=== PATIENT | male | born 1935 | race Caucasian/White ===

== ENCOUNTER 2016-09-14 11:14 | Emergency (ER) | payer MEDICARE ==
[~2016-09-14] VITALS: Ht 182.9 cm; Wt 82.6 kg
[~2016-09-14 11:14] MED LIST: ASPI-482 PO; ASPI325T8 PO; ATOR10TA60 PO; CLOP75TA PO; EZET10TA18 PO; GLIP5POW MC; GLIP5TAB10 PO; ISOS30TA PO; LOVA40TA2 PO; METF-620 PO; MULT-246 PO; OMEP40CA2 PO; TERA1CAP3 PO; TERA5CAP3 PO; one a day vitamin PO
[2016-09-14 12:03] LABS: BILIRUBIN,URINE NEGATIVE (NEG); GLUCOSE,URINE 250 mg/dL (NEG); NITRITE,URINE NEGATIVE (NEG); PROTEIN,URINE NEGATIVE (NEG-TRACE); UROBILINOGEN,URINE 0.2 mg/dL (0.2 mg/dL)
[2016-09-14 12:13] LABS: BACTERIA,URINE 0 /HPF (0-FEW); RBC,URINE 0 /HPF (0-2); SQUAMOUS EPITHELIAL CELL,UR FEW /LPF; WBC,URINE 0 /HPF (0-4)
[2016-09-14 12:52] LABS: BASO % 1 % (0-3); EOS % 2 % (0-3); HEMATOCRIT 41.6 % (39.0-53.0); HEMOGLOBIN 13.9 g/dL (13.0-17.5); LYMPH # 1.2 x10^3/uL (1.0-4.8); LYMPH % 17 % (24-48); MEAN CORPUSCULAR HEMOGLOBIN 32 pg (25-35); MEAN CORPUSCULAR HGB CONC 34 g/dL (31-37); MEAN CORPUSCULAR VOLUME 95 fL (79-100); MONO % 8 % (0-9); NEUT % 71 % (31-73); PLATELET COUNT 182 x10^3/uL (140-400); RED CELL DISTRIBUTION WIDTH 13.4 % (11.5-14.5)
[2016-09-14 13:00] LABS: CALCIUM 9.3 mg/dL (8.5-10.1); CREATININE 1.3 mg/dL (0.7-1.3); GFR 53.1; POTASSIUM 4.6 mmol/L (3.5-5.1)
[2016-09-14 16:01] VITALS: BP 136/67
--- NOTE | 2016-09-14 16:42 | ED.ADGEN ---
Past Medical History Past Medical History: Diabetes-Type II, High Cholesterol, Heart Disease Past Surgical History: Angioplasty, Other Additional Past Surgical Histo: cadiac stents, ulcers Alcohol Use: None Drug Use: None Adult General Chief Complaint Chief Complaint: PAIN ON URINATION HPI HPI Patient is a 81 year old man, history of type 2 diabetes mellitus, hypertension , hyperlipidemia, overactive bladder, who presents emergency department with a complaint of weak stream, and burning with urination over the past week and a half. Patient states that he was started on mirabegron by his urologist, Dr. Pandey, approximately 12 or so days ago, for overactive bladder. He states that 2 days after being in medication begin to experience some burning with urination. He states he spoke to the urologist office and he was informed to continue the medication. Patient states that the burning has gotten worse, he is now having burning with every episode of urination, states that he has a "weak stream", states he is urinating more frequently, and is also experiencing cramping pain in his lower abdomen and back. He denies any fevers or chills, any nausea or vomiting, any diarrhea, any focal weakness, numbness or tingling. No hematuria, no injuries, no constipation. Patient states he tried to speak to the urologist office, and was informed that his physician was awake, and there was no covering physician at this time. Review of Systems Review of Systems Constitutional: Denies fever or chills. [] Eyes: Denies change in visual acuity. [] HENT: Denies nasal congestion or sore throat. [] Respiratory: Denies cough or shortness of breath. [] Cardiovascular: Denies chest pain or edema. [] GI: Denies abdominal pain, nausea, vomiting, bloody stools or diarrhea. [] : Dysuria, associated with abdominal cramping, and back pain. Musculoskeletal: Denies back pain or joint pain. [] Integument: Denies rash. [] Neurologic: Denies headache, focal weakness or sensory changes. [] Endocrine: Denies polyuria or polydipsia. [] Lymphatic: Denies swollen glands. [] Psychiatric: Denies depression or anxiety. [] Allergies Allergies Allergies Coded Allergies Type Severity Reaction Last Updated Verified Sulfa (Sulfonamide Antibiotics) Allergy Intermediate Rash 03/26/14 Yes Physical Exam Physical Exam Constitutional: Well developed, well nourished, no acute distress, non-toxic appearance. [] HENT: Normocephalic, atraumatic, bilateral external ears normal, oropharynx moist, no oral exudates, nose normal. [] Eyes: PERRLA, EOMI, conjunctiva normal, no discharge. [] Neck: Normal range of motion, no tenderness, supple, no stridor. [] Cardiovascular:Heart rate regular rhythm, no murmur, S1, S2, rubs or gallops. [] Lungs & Thorax: Bilateral breath sounds clear to auscultation, no wheezing, rhonchi, rales. No chest wall crepitus or tenderness. [] Abdomen: Bowel sounds normal, soft, no tenderness, no rebound, rigidity, no guarding, no masses, no pulsatile masses. [] Skin: Warm, dry, no erythema, no rash. [] Back: No midline or paraspinal tenderness, no CVA tenderness. [] Extremities: No tenderness, no cyanosis, no clubbing, ROM intact, no edema. [] Neurologic: Alert and oriented X 3, normal motor function, normal sensory function, no focal deficits noted. [] Psychologic: Affect normal, judgement normal, mood normal. [] examination: Patient is uncircumcised, foreskin easily retracted, normal- appearing glands penis, with no lymphadenopathy, masses, normal-appearing scrotum, no discharge drainage or lesions identified. Current Patient Data Vital Signs Vital Signs Date Time Temp Pulse Resp B/P (MAP) Pulse Ox O2 Delivery O2 Flow Rate FiO2 09/14/16 16:01 66 22 136/67 (90) 98 Room Air 09/14/16 11:25 97.5 97.5 Lab Values Laboratory Tests Test 09/14/16 11:22 09/14/16 12:39 Urine Collection Type Unknown Urine Color Yellow Urine Clarity Clear Urine pH 6.0 Urine Specific [place] 1.015 Urine Protein Negative mg/dL (NEG-TRACE) Urine Glucose (UA) 250 mg/dL (NEG) Urine Ketones (Stick) Negative mg/dL (NEG) Urine Blood Negative (NEG) Urine Nitrite Negative (NEG) Urine Bilirubin Negative (NEG) Urine Urobilinogen Dipstick 0.2 mg/dL (0.2 mg/dL) Urine Leukocyte Esterase Negative (NEG) Urine RBC 0 /HPF (0-2) Urine WBC 0 /HPF (0-4) Urine Squamous Epithelial Cells Few /LPF Urine Bacteria 0 /HPF (0-FEW) Urine Hyaline Casts Few /HPF White Blood Count 7.0 x10^3/uL (4.0-11.0) Red Blood Count 4.40 x10^6/uL (4.30-5.70) Hemoglobin 13.9 g/dL (13.0-17.5) Hematocrit 41.6 % (39.0-53.0) Mean Corpuscular Volume 95 fL (79-100) Mean Corpuscular Hemoglobin 32 pg (25-35) Mean Corpuscular Hemoglobin Concent 34 g/dL (31-37) Red Cell Distribution Width 13.4 % (11.5-14.5) Platelet Count 182 x10^3/uL (140-400) Neutrophils (%) (Auto) 71 % (31-73) Lymphocytes (%) (Auto) 17 % (24-48) L Monocytes (%) (Auto) 8 % (0-9) Eosinophils (%) (Auto) 2 % (0-3) Basophils (%) (Auto) 1 % (0-3) Neutrophils # (Auto) 5.0 x10^3uL (1.8-7.7) Lymphocytes # (Auto) 1.2 x10^3/uL (1.0-4.8) Monocytes # (Auto) 0.6 x10^3/uL (0.0-1.1) Eosinophils # (Auto) 0.2 x10^3/uL (0.0-0.7) Basophils # (Auto) 0.0 x10^3/uL (0.0-0.2) Sodium Level 140 mmol/L (136-145) Potassium Level 4.6 mmol/L (3.5-5.1) Chloride Level 103 mmol/L (98-107) Carbon Dioxide Level 29 mmol/L (21-32) Anion Gap 8 (6-14) Blood Urea Nitrogen 23 mg/dL (8-26) Creatinine 1.3 mg/dL (0.7-1.3) Estimated GFR (Cockcroft-Gault) 53.1 Glucose Level 179 mg/dL (70-99) H Calcium Level 9.3 mg/dL (8.5-10.1) Laboratory Tests 6/23/17 12:39 Laboratory Tests 09/14/16 12:39 EKG EKG Not indicated. [] Radiology/Procedures Radiology/Procedures Not indicated. [] Course & Med Decision Making Course & Med Decision Making Pertinent Labs and Imaging studies reviewed. (See chart for details) Patient well-appearing, denies any complaints this time, states he only has the cramping pain in his abdomen and back when he is urinating. Patient with a post void residual in the emergency department of 0 MLS on bladder scanner. Urinalysis does not reveal any evidence of bacteria, nitrates, or white blood cells. Laboratory studies obtained reveal electrolytes within normal limits, glucose of 179, consistent with patient's history of type 2 diabetes mellitus, and non-concerning CBC. I did attempt to speak with the physician on-call for the patient's urology group, multiple pages were sent out, at [phone], [phone] to the urology service, at [phone]. We're informed that the covering physician was in a procedure, however we never received a call back after waiting for more than hour. At that point, the patient was resting comfortably in the ED, without any concerning symptoms, I did speak with Dr. Sweeney of urology at [facility], who stated that he would recommend discontinuing the miragegron, and having the patient reinstitute his Flomax. I did discuss with patient, as he has no evidence of infection or other concerning findings, he is agreeable to plan to stop the new her medication and reinstitute his Flomax until he is able to follow-up with his urologist. We also discussed in detail concerning symptoms that prompt return to the ED for additional evaluation. Patient and at bedside voiced understanding and agreement. Patient does have Flomax at home and does not require additional prescription. Patient discharged home in stable condition with his with plan as above. Dragon Disclaimer Dragon Disclaimer This electronic medical record was generated, in whole or in part, using a voice recognition dictation system. Departure Impression: Primary Impression: Dysuria Disposition: HOME, SELF-CARE Condition: IMPROVED DAWIT LAWSON DO Sep 14, 2016 16:42
== END 2016-09-14 16:18 | disposition home or self-care (01) ==
LOC: ER 11:14
DX: R30.0 Dysuria (principal); R10.30 Lower abdominal pain, unspecified; M54.9 Dorsalgia, unspecified; E78.5 Hyperlipidemia, unspecified; E11.9 Type 2 diabetes mellitus without complications; E78.00 Pure hypercholesterolemia, unspecified; I11.9 Hypertensive heart disease without heart failure; N32.81 Overactive bladder; Z95.1 Presence of aortocoronary bypass graft; Z95.5 Presence of coronary angioplasty implant and graft; Z88.2 Allergy status to sulfonamides
CPT/HCPCS: 36415; 80048; 81001; 85027; 99284

== ENCOUNTER 2016-10-18 00:57 | Observation (INO) | payer MEDICARE ==
[~2016-10-18] VITALS: Ht 182.9 cm; Wt 80.0 kg
[2016-10-18 01:29] LABS: BASO % 1 % (0-3); EOS % 3 % (0-3); HEMOGLOBIN 13.4 g/dL (13.0-17.5); LYMPH # 2.4 x10^3/uL (1.0-4.8); LYMPH % 36 % (24-48); MEAN CORPUSCULAR HEMOGLOBIN 32 pg (25-35); MEAN CORPUSCULAR HGB CONC 34 g/dL (31-37); MEAN CORPUSCULAR VOLUME 94 fL (79-100); MONO % 10 % (0-9); NEUT % 51 % (31-73); PLATELET COUNT 193 x10^3/uL (140-400); RED BLOOD COUNT 4.26 x10^6/uL (4.30-5.70); RED CELL DISTRIBUTION WIDTH 13.2 % (11.5-14.5); WHITE BLOOD COUNT 6.5 x10^3/uL (4.0-11.0)
[2016-10-18] MEDS ORDERED: ASPIRIN CHEWABLE 81 MG TABLET. PO ONE (01:30)
[2016-10-18 01:40] LABS: CREATININE 1.3 mg/dL (0.7-1.3); GFR 53.1; POTASSIUM 4.2 mmol/L (3.5-5.1)
[2016-10-18 01:43] LABS: ALBUMIN 3.6 g/dL (3.4-5.0); TOTAL BILIRUBIN 0.4 mg/dL (0.2-1.0); TOTAL PROTEIN 7.3 g/dL (6.4-8.2)
--- NOTE | 2016-10-18 01:45 | PHYS DOC ---
Past Medical History Past Medical History: Diabetes-Type II, High Cholesterol, Heart Disease Past Surgical History: Angioplasty, Other Additional Past Surgical Histo: cadiac stents, ulcers Alcohol Use: None Drug Use: None Adult General Chief Complaint Chief Complaint: RIB PAIN HPI HPI Patient is a 81 year old male who presents with right-sided chest pain that started when he laid down to go to bed tonight. Patient has a cardiac history of 2 stents placed. Patient states the right chest pain radiates to his back. Patient denies any shortness of breath or any other symptoms. Patient denies any fevers or chills. Patient denies any nausea/vomiting/diarrhea. Review of Systems Review of Systems GEN: Denies fevers, chills, sweats HEENT: Denies blurred vision, sore throat CV: chest pain RESP: Denies shortness of air, cough GI: Denies n/v/d NEURO: Denies confusion, dizziness MSK: Denies weakness, joint pain/swelling Current Medications Current Medications Current Medications Medications (Trade) Dose Ordered Sig/Evans Start Time Stop Time Status Last Admin Dose Admin Aspirin (Children'S Aspirin) 324 mg 1X ONCE 10/18/16 01:30 10/18/16 01:31 DC 10/18/16 02:04 324 MG Fentanyl Citrate (Fentanyl 2ml Vial) 50 mcg 1X ONCE 10/18/16 02:00 10/18/16 02:01 DC 10/18/16 02:04 50 MCG Info (Do NOT chart on this entry -- for MONITORING) 1 each PRN DAILY PRN 10/18/16 02:00 10/20/16 01:59 Iohexol (Omnipaque 300 Mg/ml) 75 ml 1X ONCE 10/18/16 02:00 10/18/16 02:01 DC 10/18/16 02:11 60 ML Allergies Allergies Allergies Coded Allergies Type Severity Reaction Last Updated Verified Sulfa (Sulfonamide Antibiotics) Allergy Intermediate Rash 03/26/14 Yes Physical Exam Physical Exam GEN.: No apparent distress. Alert and oriented. HEENT: Head is normocephalic, atraumatic NECK: Supple. LUNGS: CTAB. HEART: RRR, S1, S2 present. Peripheral pulses intact ABDOMEN: Soft, nontender. Positive bowel sounds. EXTREMITIES: Without any cyanosis. NEUROLOGIC: Normal speech, normal tone PSYCHIATRIC: Normal affect, normal mood. SKIN: No ulcerations Current Patient Data Vital Signs Vital Signs Date Time Temp Pulse Resp B/P (MAP) Pulse Ox O2 Delivery O2 Flow Rate FiO2 10/18/16 02:04 Room Air 10/18/16 01:03 97.8 83 24 181/85 (117) 97 97.8 Lab Values Laboratory Tests Test 10/18/16 01:08 White Blood Count 6.5 x10^3/uL (4.0-11.0) Red Blood Count 4.26 x10^6/uL (4.30-5.70) L Hemoglobin 13.4 g/dL (13.0-17.5) Hematocrit 40.0 % (39.0-53.0) Mean Corpuscular Volume 94 fL (79-100) Mean Corpuscular Hemoglobin 32 pg (25-35) Mean Corpuscular Hemoglobin Concent 34 g/dL (31-37) Red Cell Distribution Width 13.2 % (11.5-14.5) Platelet Count 193 x10^3/uL (140-400) Neutrophils (%) (Auto) 51 % (31-73) Lymphocytes (%) (Auto) 36 % (24-48) Monocytes (%) (Auto) 10 % (0-9) H Eosinophils (%) (Auto) 3 % (0-3) Basophils (%) (Auto) 1 % (0-3) Neutrophils # (Auto) 3.3 x10^3uL (1.8-7.7) Lymphocytes # (Auto) 2.4 x10^3/uL (1.0-4.8) Monocytes # (Auto) 0.6 x10^3/uL (0.0-1.1) Eosinophils # (Auto) 0.2 x10^3/uL (0.0-0.7) Basophils # (Auto) 0.0 x10^3/uL (0.0-0.2) Sodium Level 141 mmol/L (136-145) Potassium Level 4.2 mmol/L (3.5-5.1) Chloride Level 104 mmol/L (98-107) Carbon Dioxide Level 28 mmol/L (21-32) Anion Gap 9 (6-14) Blood Urea Nitrogen 25 mg/dL (8-26) Creatinine 1.3 mg/dL (0.7-1.3) Estimated GFR (Cockcroft-Gault) 53.1 BUN/Creatinine Ratio 19 (6-20) Glucose Level 197 mg/dL (70-99) H Calcium Level 9.0 mg/dL (8.5-10.1) Total Bilirubin 0.4 mg/dL (0.2-1.0) Aspartate Amino Transferase (AST) 17 U/L (15-37) Alanine Aminotransferase (ALT) 24 U/L (16-63) Alkaline Phosphatase 126 U/L (46-116) H Troponin I Quantitative < 0.017 ng/mL (0.000-0.055) Total Protein 7.3 g/dL (6.4-8.2) Albumin 3.6 g/dL (3.4-5.0) Albumin/Globulin Ratio 1.0 (1.0-1.7) Laboratory Tests 10/18/16 01:08 Laboratory Tests 10/18/16 01:08 EKG EKG 0107: EKG shows normal sinus rhythm rate of 67 no STEMI [] Radiology/Procedures Radiology/Procedures Chest x-ray NAD, left hiatal hernia CT angiogram of the chest: No evidence of pulmonary embolus. Moderate elevation of the left hemidiaphragm with some basilar atelectasis.[] Course & Med Decision Making Course & Med Decision Making Pertinent Labs and Imaging studies reviewed. (See chart for details) ED course: Patient was seen and examined emergency room cardiac workup was ordered along with a CT angiogram the chest 0325: Patient was reevaluated in which she was still having some right-sided chest pain but the pain got better. Pts is blood pressure is 125/68 0338: Discussed CC/HP/PMH with Dr. Pham and recommends admit MDM: After reviewing the chart, CC/HPI/PMH, physical exam, [lab results], [ radiological results], I do not believe the patient's having acute [place], PE, thoracic aortic dissection. However given the patient's significant cardiac history and after talking to his manager document will place the patient in observation for further cardiac evaluation. [] Dragon Disclaimer Dragon Disclaimer This electronic medical record was generated, in whole or in part, using a voice recognition dictation system. Departure Departure Impression: Primary Impression: Chest pain Additional Impression: Hypertension Disposition: 09 ADMITTED INPATIENT Admitting Physician: Other (Dr. Premsingh) Condition: IMPROVED Referrals: FRAN PHAM MD (PCP) Problem Qualifiers DEVORA OH DO Oct 18, 2016 01:45
[2016-10-18] MEDS ORDERED: IOHEXOL 300 MG/ML 75 ML VIAL IV ONE (02:00)
[2016-10-18] MEDS ORDERED: fentaNYL PF VIAL 100 MCG/2 ML VIAL IV ONE (02:00)
[2016-10-18] MEDS ORDERED: CONTRAST GIVEN MC PRN (02:00)
--- NOTE | 2016-10-18 03:26 | RAD ---
CT angiogram of the chest with contrast: Reason for examination: right-sided chest pain tonight. Helical images were obtained through the chest with intravenous administration of 60 cc Omnipaque 300 100 using PE protocol. 3-D MIPS reconstruction was performed in sagittal and coronal planes. Exposure: One or more of the following individualized dose reduction techniques were utilized for this examination: 1. Automated exposure control 2. Adjustment of the mA and/or kV according to patient size 3. Use of iterative reconstruction technique. The trachea and mainstem bronchi show no intraluminal lesions. No abnormality seen at the esophagus. The thoracic aorta shows no aneurysmal dilatation or dissection. The heart size is normal with no pericardial effusion seen. The pulmonary arteries show no evidence of pulmonary embolus. There appears to be moderate elevation of the left hemidiaphragm. There is some basilar atelectasis present on the left. No pleural effusions or pneumothorax are seen. No abnormality seen at the liver, spleen adrenal glands, pancreas or gallbladder. No acute bony abnormalities are present. There are some hypertrophic changes in the thoracic spine. IMPRESSION: No evidence of pulmonary embolus. Moderate elevation of the left hemidiaphragm with some basilar atelectasis. Electronically signed by: Tracey Mae MD (10/18/2016 3:23 AM) [facility]
[2016-10-18] MEDS ORDERED: MORPHINE SULFATE 4 MG/ML DISP.SYRIN. IV PRN (04:00)
[2016-10-18] MEDS ORDERED: ONDANSETRON PF 4 MG/2 ML VIAL. IV PRN (04:00)
[2016-10-18 04:38] VITALS: BP 149/79
[2016-10-18 07:00] VITALS: BP 127/67
--- NOTE | 2016-10-18 07:59 | EKG ---
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
--- NOTE | 2016-10-18 08:33 | RAD ---
Portable chest, 10/18/2016: History: Right-sided chest pain Comparison is made to a study from 06/24/2015. There is unchanged elevation of the left hemidiaphragm. The heart size and pulmonary vascularity are normal. No pulmonary infiltrates are seen. There is no evidence of pleural fluid. IMPRESSION: 1. Chronic elevation of the left hemidiaphragm. 2. No acute cardiopulmonary abnormality is detected.
[2016-10-18 11:02] LABS: BILIRUBIN,URINE NEGATIVE (NEG); GLUCOSE,URINE NEGATIVE (NEG); NITRITE,URINE NEGATIVE (NEG); PROTEIN,URINE NEGATIVE (NEG-TRACE); UROBILINOGEN,URINE 0.2 mg/dL (0.2 mg/dL)
[2016-10-18 11:13] LABS: RBC,URINE OCC /HPF (0-2); WBC,URINE OCC /HPF (0-4)
[2016-10-18 11:14] LABS: BACTERIA,URINE 0 /HPF (0-FEW); SQUAMOUS EPITHELIAL CELL,UR OCC /LPF
[2016-10-18] MEDS ORDERED: REGADENOSON 0.4 MG/5 ML DISP.SYRIN. IV ONE (11:45)
--- NOTE | 2016-10-18 12:49 | RAD ---
Right upper quadrant abdominal ultrasound, 10/18/2016: History: Right upper quadrant pain The gallbladder is within normal limits in size. There is no sonographic evidence of cholelithiasis. The gallbladder wall is not thickened. The common hepatic duct was not clearly defined. The CT study from earlier in the day showed no evidence of significant bile duct dilatation. No hepatic mass is evident. The visualized portions of the pancreas and right kidney are unremarkable. IMPRESSION: No significant gallbladder abnormality is detected.
[2016-10-18 15:00] VITALS: BP 119/63
--- NOTE | 2016-10-18 19:15 | RAD ---
APPROVED REPORT Test Type: Pharmacological Stress Nurse/Tech: nadira carvalho Test Indications: chest pain Cardiac History: CARDIAC STENTS, HTN, SEE EHR Medications: SEE EHR Medical History: NONE STATED, SEE EHR Resting ECG: SR Resting Heart Rate: 63 bpm Resting Blood Pressure: 124/74mmHg Pretest Chest Pain: No chest pain Nurse/Tech Notes LUNG SOUNDS CLEAR, S1S2 WNL. Consent: The procedure was explained to the patient in lay terms. Informed consent was witnessed. Woody eout was entered into [employer]. History and Stress Test performed by RT Kye (R) (N) Pharm. Details Pharmacologic stress testing was performed using 0.4mg per 5ml of regadenoson given intravenously ove r 7-10 seconds. Stress Symptoms NONE STATED. POST EXERCISE Reason for Termination: Infusion complete Max HR: 117 bpm Max Blood Pressure: 125/67mmHg Chest Pain: No. Arrhythmia: No. ST Change: No. Imaging Protocol IMAGE PROTOCOL: Rest Tc-99m/stress Tc-99m 1 day Rest: Stress: Viability: Radiopharm.Tc99m HmcqeburcNn59v Sestamibi Oxow43lKx 33mCi Duration 20min. 15min. Img Date 10/18/2016 10/18/2016 Inj-Img Lbyh40mye. 60min. Rest Admin Site:IV - Left AntecubitalAdministrator:RT Gisell (R)(N) Stress Admin Site: IV - Left AntecubitalAdministrator: RT Herber FishmanR)(N) STRESS DATA End Diast. Vol.70.0mlAv. Heart Rate72.0bpm End Syst. Vol.10.0mlCO Index BSA0.0L/min Myocardial Bjen715.0gEject. Mlyidnww97.0% Stress Rates Pk. Fill Rate3.20EDV/secLVtime Pk. Fill 174.92msec Pk. Empty Rate4.36ESV/secLVtime Pk. Cqykh893.84msec 03/27 Pk. Fill1.06EDV/sec Stress Scores Regional WT1.00Summed WT4.00 Regional WM0.00Summed WM1.00 LV Perf. Quant 17 Seg. SSS5.00 17 Seg. SRS5.00 17 Seg. SDS2.00 Stress Defect Extent (% LAD)5.00Rest Defect Extent (% LAD)5.00Rev. Defect Extent (% LAD)0.00 Stress Defect Extent (% LCX) 11.30Rest Defect Extent (% LCX)0.00Rev. Defect Extent (% LCX)7.50 Stress Defect Extent (% RCA)0.00Rest Defect Extent (% RCA)0.00Rev. Defect Extent (% RCA)0.00 Stress Defect Extent (% DEONNA)5.40Rest Defect Extent (% DEONNA)4.80Rev. Defect Extent (% DEONNA)1.30 Conclusion 1. No electrocardiographic changes suggestive of myocardial ischemia with pharmscological stress. 2. No significant perfusion defects to suggest myocardial ischemiaor scar. 3. Normal wall motion and wall thickening with an ejection fraction of 80%. 4. Scan indicates low risk for future cardiac events
[2016-10-18 19:20] VITALS: BP 133/75
--- NOTE | 2016-10-19 01:34 | DS ---
DATE OF DISCHARGE: 10/18/2016 HOSPITAL COURSE: This is an 81-year-old white male who lives at home with his . He had a sudden onset of severe pain on the lateral aspect of his chest on the right side. It seemed to go through to the back. It definitely increased with respiration. He tried various maneuvers, positions, but the pain persisted. There is no associated diaphoresis. He was short of breath because he could not take a deep breath. He came into the Emergency Room. In the Emergency Room while walking up to the counter, the pain became very severe, so he said he had to stop and lean against the wall. An EKG was normal. A chest x-ray was normal. Cardiac enzymes were negative. He underwent a CTA. There is no evidence of pulmonary embolism. There is no evidence of dissection or infiltrates. There are some mild basilar atelectasis. There is elevation of the left hemidiaphragm as it has been known before. He underwent the gallbladder sonogram which showed no evidence of gallstones. He underwent a myocardial perfusion imaging study, which showed no significant perfusion defects and the ejection fraction was normal. He was thus informed that his cardiac status was normal. The gallbladder was normal. There is no abnormality in the lungs to account further pain. A urinalysis was normal and thus there is probably no pathology in his kidney. The etiology of the pain is not known; however, he is pain free since this morning. He was thus discharged. FINAL DIAGNOSES: 1. Right-sided pleuritic chest pain, etiology unclear. 2. History of coronary artery disease and negative myocardial perfusion imaging study. 3. Diabetes mellitus. HOMEGOING INSTRUCTIONS: He was asked to continue all his home medications. ACTIVITIES: As tolerated. He was asked to inform me if he should have any further episodes of chest pain. FRAN PHAM MD DR: DIONICIO/elena JOB#: [id number] / [id number]
== END 2016-10-18 20:30 | disposition home or self-care (01) ==
LOC: ER 00:57 → 2 SOUTH 03:40
PROVIDERS: ADMIT Specialist; ATTEND Specialist
DX: R07.81 Pleurodynia (principal); I25.10 Atherosclerotic heart disease of native coronary artery without angina pectoris; E11.9 Type 2 diabetes mellitus without complications; E78.00 Pure hypercholesterolemia, unspecified; I10 Essential (primary) hypertension; J98.11 Atelectasis; Z98.61 Coronary angioplasty status; Z95.5 Presence of coronary angioplasty implant and graft
CPT/HCPCS: 36415; 71010; 71275; 76705; 78452; 80053; 81001; 84484; 85027; 93005; 93017; 96374; 99285; A9500; G0378; J2785; J3010; Q9967; 96375; 96376; G0379

== ENCOUNTER 2017-01-07 18:00 | Observation (INO) | payer MEDICARE ==
[~2017-01-07] VITALS: Ht 182.9 cm; Wt 84.4 kg
[2017-01-07] MEDS ORDERED: MECLIZINE HCL 12.5 MG TABLET. PO PRN (20:45)
[2017-01-07] MEDS ORDERED: ATOR40TA59 PO (20:48)
[2017-01-07] MEDS: TERAZOSIN 5 MG CAPSULE. PO SCH (23:00)
[2017-01-07] MEDS: ATORVASTATIN CALCIUM 40 MG TABLET. PO SCH (23:00)
[2017-01-07 23:50] VITALS: BP 133/47
[2017-01-08 03:25] VITALS: BP 119/67
[2017-01-08 05:09] LABS: BASO # 0.1 x10^3/uL (0.0-0.2); BASO % 1 % (0-3); EOS % 3 % (0-3); HEMOGLOBIN 12.6 g/dL (13.0-17.5); LYMPH # 1.8 x10^3/uL (1.0-4.8); LYMPH % 36 % (24-48); MEAN CORPUSCULAR HEMOGLOBIN 32 pg (25-35); MEAN CORPUSCULAR HGB CONC 34 g/dL (31-37); MEAN CORPUSCULAR VOLUME 93 fL (79-100); MONO % 9 % (0-9); NEUT % 51 % (31-73); PLATELET COUNT 182 x10^3/uL (140-400); RED BLOOD COUNT 3.97 x10^6/uL (4.30-5.70); RED CELL DISTRIBUTION WIDTH 12.9 % (11.5-14.5); WHITE BLOOD COUNT 5.2 x10^3/uL (4.0-11.0)
[2017-01-08 05:48] LABS: CHOLESTEROL/HDL RATIO 3.1
[2017-01-08 07:10] VITALS: BP 120/72
[2017-01-08 07:21] LABS: CREATININE 1.1 mg/dL (0.7-1.3); GFR 64.4
[2017-01-08] MEDS: MULTIVITAMIN with MINERAL TABLET. PO SCH (08:35)
[2017-01-08] MEDS: ASPIRIN ENTERIC COATED 81 MG TABLET.DR. PO SCH (08:35)
[2017-01-08] MEDS: glipiZIDE 5 MG TABLET PO SCH (08:35)
[2017-01-08 10:50] VITALS: BP 108/62
--- NOTE | 2017-01-08 14:17 | RAD ---
MRI of the brain without contrast 01/08/2017 Clinical History: Severe vertigo. Technique: Unenhanced T1-weighted sagittal and axial, T2-weighted axial and coronal and FLAIR, gradient echo and diffusion-weighted axial images of the brain were obtained. Findings: No previous imaging studies are available for comparison. There is generalized parenchymal atrophy. Patchy and multiple small focal areas of increased signal intensity are seen within the periventricular and subcortical white matter of both cerebral hemispheres on the FLAIR and T2-weighted images consistent with areas of small vessel ischemic disease. No acute parenchymal abnormality is seen. No extra-axial fluid collection is seen. There is no MRI evidence of acute ischemia/infarction. Mild mucosal thickening is seen scattered throughout the paranasal sinuses. There is a small left mastoid effusion. Normal flow voids are seen within the major vascular structures surrounding the brain parenchyma. Impression: No acute parenchymal abnormality is seen. Electronically signed by: Solomon Mancera MD (01/08/2017 2:13 PM) [facility]
[2017-01-08 14:44] VITALS: BP 138/76
[2017-01-08] MEDS: MECLIZINE HCL 12.5 MG TABLET. PO SCH ×2 (18:06→22:46)
[2017-01-08 19:50] VITALS: BP 138/72
[2017-01-08] MEDS: TERAZOSIN 5 MG CAPSULE. PO SCH (22:46)
[2017-01-08] MEDS: ATORVASTATIN CALCIUM 40 MG TABLET. PO SCH (22:46)
--- NOTE | 2017-01-08 22:51 | HP ---
ADMIT DATE: 01/07/2017 HISTORY OF PRESENT ILLNESS: This is an 81-year-old white male who I saw in the office on the day of admission. He started to have severe vertigo. He was extremely uncomfortable with it. He thought he could barely walk. He usually dives, but this time he asked his to drive. He gives no history of headache or vision disturbances. There is no abdominal pain, nausea or vomiting. He gives history of hypertension. He also has diabetes mellitus. He has had coronary artery disease. He has had no chest pain, shortness of breath or dizziness recently. He does not smoke or take alcohol. PRESENT MEDICATIONS: 1. Aspirin 81 mg a day. 2. Atorvastatin 40 mg a day. 3. Glipizide 5 mg a day. 4. Metformin 1000 mg twice a day. 5. Multivitamin. 6. Terazosin 5 mg a day. PHYSICAL EXAMINATION: VITAL SIGNS: The heart rate was 70 per minute and regular. He was afebrile. The blood pressure was 120/70. LUNGS: Clear. HEART: The heart sounds are normal with no murmur or gallop. ABDOMEN: Soft. NEUROLOGIC: He had a wide-based gait. He felt dizzy and unsteady on getting up or turning his head. There is no nystagmus. The cranial nerves are normal. The strength was normal in all 4 extremities. IMPRESSION: 1. Possible vertigo. 2. Rule out brainstem transient ischemic attack. 3. Hypertension. 4. Diabetes mellitus. 5. Dyslipidemia. The patient was uncomfortable going home. Also, with all his risk factors, he should have an MRI as soon as possible. He was thus hospitalized. An MRI will be done. He will be placed on meclizine. FRAN PHAM MD DR: DIONICIO/elena JOB#: [id number] / [id number]
[2017-01-08 23:12] VITALS: BP 122/89
[2017-01-09 03:21] VITALS: BP 103/42
[2017-01-09] MEDS: MECLIZINE HCL 12.5 MG TABLET. PO SCH (06:11)
[2017-01-09 06:54] VITALS: BP 125/74
[2017-01-09] MEDS: MULTIVITAMIN with MINERAL TABLET. PO SCH (09:12)
[2017-01-09] MEDS: glipiZIDE 5 MG TABLET PO SCH (09:12)
[2017-01-09] MEDS: ASPIRIN ENTERIC COATED 81 MG TABLET.DR. PO SCH (09:12)
== END 2017-01-09 14:45 | disposition home or self-care (01) ==
LOC: INTOOBSV 18:24 → 6 SOUTH 18:24
PROVIDERS: ADMIT Specialist; ATTEND Specialist
DX: R42 Dizziness and giddiness (principal); I10 Essential (primary) hypertension; E11.9 Type 2 diabetes mellitus without complications; I25.10 Atherosclerotic heart disease of native coronary artery without angina pectoris; E78.5 Hyperlipidemia, unspecified
CPT/HCPCS: 36415; 70551; 80061; 82565; 82962; 83036; 83880; 84443; 85025; 97161; G0378; G0379; G8978; G8979; G8980; J8597

== ENCOUNTER → 2017-07-11 | Outpatient (CLI) | payer MEDICARE | END | disposition home or self-care (01) | LOC: PMGWOUND 08:14 | DX: S61.511A Laceration without foreign body of right wrist, initial encounter (principal); I25.10 Atherosclerotic heart disease of native coronary artery without angina pectoris; E11.9 Type 2 diabetes mellitus without complications; I11.0 Hypertensive heart disease with heart failure; I50.9 Heart failure, unspecified; E78.00 Pure hypercholesterolemia, unspecified; Z95.1 Presence of aortocoronary bypass graft; Z95.5 Presence of coronary angioplasty implant and graft; V89.2XXA Person injured in unspecified motor-vehicle accident, traffic, initial encounter; Y93.9 Activity, unspecified; Y99.8 Other external cause status; Y92.9 Unspecified place or not applicable | CPT/HCPCS: 97597 ==